=== PATIENT | male | born 1960 ===

== ENCOUNTER 2016-04-04 10:05 | Emergency (ER) | payer SELFPAY ==
[~2016-04-04] VITALS: Ht 152.4 cm; Wt 85.0 kg
[2016-04-04 10:08] VITALS: Ht 152.4 cm; Wt 85.0 kg
--- NOTE | 2016-04-04 10:53 | ERD ---
ER Documentation Chief Complaint Date/Time DATE: 04/04/16 TIME: 10:50 Chief Complaint left ring finger pain,came to cut his ring off HPI This patient is a 55-year-old male presenting from his psychiatric facility with an escort for ring stuck on his left fourth finger for the past week. The patient states he woke up approximately 1 week ago and noticed his left fourth finger was more swollen than usual and he was unable to remove his ring. He states "he wants the ring off". The patient reports some mild pain associated with the ring being stuck. He denies any fevers, chills, nausea, vomiting, diarrhea or other symptoms ROS All systems reviewed and are negative except as per history of present illness. Allergies Allergies: Coded Allergies: No Known Allergy (Unverified , 04/04/16) PMhx/Soc Medical and Surgical Hx: pt denies Medical Hx, pt denies Surgical Hx Hx Alcohol Use: Yes Hx Substance Use: No Hx Tobacco Use: No Smoking Status: Never smoker FmHx Noncontributory for chief complaint Physical Exam Vitals Vital Signs Date Time Temp Pulse Resp B/P Pulse Ox O2 Delivery O2 Flow Rate FiO2 04/04/16 10:08 98.0 90 18 146/90 98 Physical Exam INITIAL VITAL SIGNS: Reviewed by me. GENERAL: Alert and interactive. No acute distress. HEAD: Head is normocephalic and atraumatic. EYES: EOMI. No scleral icterus. No conjunctival injection. ENT: Moist mucosa. NECK: Supple. Full range of motion. RESPIRATORY: Normal respiratory effort. Clear breath sounds bilaterally. No wheezing, rales, or rhonchi. CV: Regular rate and rhythm. Normal S1 S2. No S3 or S4. No murmurs. ABDOMEN: Soft, non-distended, non-tender. No guarding. No rebound. No masses. EXTREMITIES: There is slight edema to the left fourth finger with a ring present at the proximal end. The patient has full range of motion of the left fingers and no tenderness to palpation. SKIN: Warm and dry. NEUROLOGIC: Alert and oriented x 4. Speech is normal. Moves all extremities equally. No motor or sensory deficits noted. Procedures/MDM 55-year-old male presents secondary to complaints of having ring stuck on his left fourth finger for 1 week. On physical examination there is some slight swelling to the left fourth finger but the patient has full range of motion and sensation and strength is intact in the fingers and the hand. I will remove the the ring using the [employer]. The patient tolerated the procedure well with no complications. The patient gave full consent prior to the procedure peer range of motion, strength, and sensation was intact post removal of the ring. The patient declined any imaging of the hand or fingers at this time. Departure Diagnosis: Primary Impression: Pain of finger Condition: Stable Additional Instructions: Follow-up with your primary care physician within 1 week. Return to the emergency department immediately should you have any new or worsening symptoms, uncontrolled fevers, or other unexplained symptoms. Take all medications as directed. STEVEN AGUILAR PA-C Apr 04, 2016 10:53
== END 2016-04-04 13:15 | disposition home or self-care (01) ==
LOC: E/R 10:05 → FTE 13:15
DX: S60.455A Superficial foreign body of left ring finger, initial encounter (principal); W49.04XA Ring or other jewelry causing external constriction, initial encounter; Y92.9 Unspecified place or not applicable
CPT/HCPCS: 99282